=== PATIENT | female | born 1955 | race Caucasian/White ===

== ENCOUNTER 2021-05-24 02:30 | Emergency (ER) | payer MEDICARE, MEDICAID ==
[~2021-05-24] VITALS: Ht 167.6 cm; Wt 75.0 kg
[~2021-05-24 02:30] MED LIST: ATEN-42 PO; ESTR0.3T3 PO; TRAM-350 PO
[2021-05-24] MEDS ORDERED: ACETAMINOPHEN 325MG TABLET PO ONE (03:15)
[2021-05-24] MEDS ORDERED: TRAMADOL 50MG TABLET PO ONE (03:45)
[2021-05-24 03:48] VITALS: BP 170/80
== END 2021-05-24 04:40 | disposition home or self-care (01) ==
LOC: ER 02:30
DX: M79.605 Pain in left leg (principal); E11.9 Type 2 diabetes mellitus without complications; I10 Essential (primary) hypertension; Z86.73 Personal history of transient ischemic attack (TIA), and cerebral infarction without residual deficits; Z79.899 Other long term (current) drug therapy
CPT/HCPCS: 73590; 82962; 99283

== ENCOUNTER 2021-07-28 13:37 | Emergency (ER) | payer MEDICARE, MEDICAID ==
[~2021-07-28] VITALS: Ht 165.1 cm; Wt 60.0 kg
[2021-07-28 14:23] VITALS: BP 98/32
== END 2021-07-28 15:28 | disposition left against medical advice (07) ==
LOC: ER 13:37
DX: T40.1X1A Poisoning by heroin, accidental (unintentional), initial encounter (principal); Y92.9 Unspecified place or not applicable; R00.0 Tachycardia, unspecified; E11.9 Type 2 diabetes mellitus without complications; I10 Essential (primary) hypertension; J40 Bronchitis, not specified as acute or chronic; Z86.73 Personal history of transient ischemic attack (TIA), and cerebral infarction without residual deficits
CPT/HCPCS: 93005; 99283